=== PATIENT | male | born 1950 | race Caucasian/White ===

== ENCOUNTER 2025-07-12 11:38 | Outpatient (CLI) | payer MEDICARE, MEDICAID ==
--- NOTE | 2025-07-13 02:40 | CONSULTATION ---
DATE OF CONSULTATION: 07/12/2025 DICTATING PHYSICIAN: Kierra Webster M.S., [facility] MODIFIED BARIUM SWALLOW STUDY REPORT REFERRING PHYSICIAN: Fred Alvarez MD HISTORY OF PRESENT ILLNESS: The patient is a 75-year-old male and consents to this evaluation. The patient's daughter was present for results of the evaluation. History was obtained from the patient and medical records. The patient reports a medical history of malignant neoplasm of the esophagus. He reports that he had received chemo and radiation about 2 months ago. He had been utilizing only his PEG tube for nutrition for an extended period of time and recently he has increased his oral intake to where he is having 4 feedings through his tube per day, but he is having about half of his calories orally. He notes that when he is eating and drinking, it feels as if the food and liquid collects in his esophagus and sometimes goes into his trachea. He has been having softer food items such as sandwiches or hamburger with moisture on it. The patient reports that his baseline weight was 105 pounds and he is now 82 pounds. 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 CURRENT DIET: The patient is currently receiving about half of his nutrition via his PEG tube and is eating about half of his nutrition orally with softer food items. Based off of reports, it appears he is on somewhere between a mechanical soft and regular textured diet as he does have things such as hamburger and chicken, but it just needs to be something either softer or with extra moisture. MEDICATIONS: Clopidogrel bisulfate 75 mg 1 tablet once daily orally, aspirin 81 mg 1 tablet once daily orally, hydrocodone acetaminophen 10/325 mg 1 tablet every 4 hours as needed orally, tadalafil 20 mg 1 tablet once daily orally as needed, triamcinolone acetonide 0.5% external cream, 1 application topically to affected area 2 times per day, atorvastatin calcium 10 mg 1 tablet once daily orally, lidocaine 5% external patch, 1 patch topically to affected area daily, remove after 12 hours, folic acid 1 mg 1 tablet once daily orally, famotidine 40 mg/5 mL oral suspension take 5 mL by mouth daily at bedtime p.r.n., potassium chloride 20 mEq/15 mL 10% oral solution takes 7.5 mL by mouth 3 times per day with food, thiamine HCl 100 mg 1 tablet once daily orally, metoprolol tartrate 25 mg 0.5 a tablet once daily orally, dilaudid 1 mg/mL oral liquid 2 mL by mouth every 6 hours as needed, digoxin 125 mcg 1 tablet once daily orally, Jardiance 10 mg 1 tablet once daily orally, diclofenac sodium 1% external gel 4 g topically to affected area 4 times per day, ferrous sulfate 220 mg/5 mL, 5 mL by mouth daily via feeding tube, prochlorperazine maleate 10 mg 1 tablet by mouth every 4-6 hours as needed, ondansetron 8 mg, 1 tablet on the tongue and allow to dissolve every 8 hours as needed, diphenoxylate/atropine 2.5/0.025 mg 1 tablet by mouth 4 times daily as needed, mirtazapine 30 mg 1 tablet by mouth daily at bedtime, metoclopramide HCl 10 mg 1 tablet by mouth every 8 hours. Note: The patient stated that the large majority of his medications he has via his PEG tube at this time. PARAMETERS: The patient is seated in a lateral 90-degree view and administered the usual protocol of thin and nectar thick liquids, puree and solid consistencies, as well as self-regulated boluses of thin liquids from a cup. RESULTS: In the oral stage of the swallow, the patient's lingual strength is moderately reduced. He has difficulty containing the bolus in the oral cavity prior to the swallow initiation and he has a mild to moderate oral residue following the initial swallow of boluses. In the pharyngeal stage of the swallow, for the first swallow, swallow initiation was delayed to the level of the piriform as he had utilized a head tilting motion to propel the bolus from the oral cavity to pharyngeal cavity. Once he was instructed to hold his head in a neutral position, swallow initiation was delayed to the level of the vallecula. Tongue base retraction was moderate-severaly reduced. Anterior movement of the posterior pharyngeal wall was observed. Elevation of the hyothyroid complex was accomplished with moderately reduced epiglottic inversion and moderately reduced anterior and superior movement of the hyoid. There was a moderate to severe pharyngeal residue following the initial swallow boluses. The patient would not swallow for a second spontaneous swallow and he had to be cued in order to do secondary swallows. PES opening was within functional limits. In terms of airway safety, the patient demonstrated penetration on the 3 mL, 5 mL and self-regulated bolus of thin liquid from a cup as well as the 5 mL nectar thick liquid bolus, puree and cookie. ANTERIOR-POSTERIOR VIEW: In the AP plane, the bolus split symmetrically between the piriform sinuses. There was some proximal movement of the bolus below the level of the mid sternum. 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 He demonstrated with penetration for all bolus consistencies. DIAGNOSES: R13.12, dysphagia, oropharyngeal phase, C15.9 malignant neoplasm of the esophagus. PATIENT EDUCATION: Immediately following modified barium swallow study, the patient and his daughter were able to view the results. The normal anatomy of the swallowing mechanism was revealed. The patient was educated on different safe swallowing strategies, including swallowing 2-3 times per bolus. He was educated on keeping his head in a neutral position rather than tilting his head back to swallow and he was educated on clearing his throat if his voice ever sounded wet or gurgly as this was noted at the end of the study. He was also educated on a recommendation for speech therapy services to target strengthening the swallowing mechanism and agreed to participate at this time. He did not have his schedule with them and so he will be scheduled at a later date. RECOMMENDATIONS: * It is recommended the patient receive swallowing therapy 1 time weekly for 12 weeks to improve the strength of the swallowing musculature to ensure airway safety protection and prevent aspiration. * It is recommended that the patient follow the aforementioned swallowing strategies for a safer swallow at this time. LONG-TERM GOALS: * The patient will maintain adequate hydration/nutrition with optimum safety and efficiency of swallow function on p.o. intake with FOIS score increasing from 3 to 5. PROGNOSIS: Prognosis for the patient is good in terms of patient motivation and family support. FUNCTIONAL ORAL INTAKE: The FOIS was administered to establish and document a change in the functional eating activities of this patient over time. This is a 7-point scale with 1 indicating no oral intake and totally tube dependent and 7 indicating total oral intake with no restrictions. This patient received a 3, which indicates tube supplements with consistent oral intake. G-CODE: [id number]. Thank you very much for asking me to participate in the care of this kind patient. Should you have any questions regarding this evaluation or recommendations, please do not hesitate to contact me at [phone]. During this examination, 4:17 minutes of fluoroscopy time and 13.87 CAK mGy were utilized. Kierra Webster M.S., [employer] TID: [id number] RECEIPT: [id number] LAURA KIM
== END 2025-07-12 23:59 | disposition home or self-care (01) ==
LOC: RAD 11:38
PROVIDERS: ATTEND Family Medicine
DX: R13.12 Dysphagia, oropharyngeal phase (principal); C15.9 Malignant neoplasm of esophagus, unspecified
CPT/HCPCS: 74230